=== PATIENT | male | born 2000 | race Hispanic/Latino ===

== ENCOUNTER → 2024-05-04 | Day surgery (SDC) | payer OTHER ==
[~2024-05-04] MED LIST: FENTANYL CITRATE/PF 100MCG/2 ML INJ ONE; GLUCAGON FOR INJ 1 MG VIAL ONE; HYOSCYAMINE SULFATE 0.5 MG/ML INJ ONE; LIDOCAINE HCL 2% LOCAL INJ 5 ML SDV VIAL INJ ONE; MIDAZOLAM HCL 2 MG/2 ML VIAL ONE; PROPOFOL IV EMULSION 10 MG/ML 20 ML VIAL ONE
[2024-05-04] MEDS: LACTATED RINGER'S 1,000 ML ONE (14:21)
[2024-05-04 16:40] VITALS: TEMP 97.8
[2024-05-04 17:10] VITALS: BP 120/78; PULSE 60; RESP 16; O2SAT 97
== END | disposition home or self-care (01) ==
LOC: OR 14:02
PROVIDERS: ATTEND Internal Medicine Gastroenterology
DX: K62.89 Other specified diseases of anus and rectum (principal); K60.2 Anal fissure, unspecified; K59.00 Constipation, unspecified; K64.8 Other hemorrhoids; Z71.3 Dietary counseling and surveillance; J45.909 Unspecified asthma, uncomplicated; Z68.25 Body mass index [BMI] 25.0-25.9, adult
CPT/HCPCS: 45378; J1610; J1980; J2003; J2250; J2704; J3010; J7121; 45380